=== PATIENT | female | born 1950 | race Asian ===

== ENCOUNTER 2018-06-22 17:39 | Inpatient (IN) | payer MEDICARE ==
[~2018-06-22] VITALS: Ht 160 cm; Wt 88.5 kg
[2018-06-22 18:12] VITALS: BP 169/85
[2018-06-22 18:36] LABS: BASOPHILS % (AUTO) 1.1 % (0.0-2.0); EOSINOPHILS % (AUTO) 2.4 % (0.0-3.0); HEMATOCRIT 41.2 % (37.0-47.0); HEMOGLOBIN 13.7 G/DL (12.0-16.0); LYMPHOCYTES % (AUTO) 36.6 % (20.0-45.0); MEAN CORPUSCULAR VOLUME 85 FL (80-99); MONOCYTES % (AUTO) 5.8 % (1.0-10.0); NEUTROPHILS % (AUTO) 54.2 % (45.0-75.0); PLATELET COUNT 262 K/UL (150-450); RED BLOOD COUNT 4.85 M/UL (4.20-5.40); RED CELL DISTRIBUTION WIDTH 11.1 % (11.6-14.8); WHITE BLOOD COUNT 9.6 K/UL (4.8-10.8)
[2018-06-22] MEDS ORDERED: ATORVASTATIN CA20 MG ORAL (18:36)
[2018-06-22] MEDS ORDERED: ATENOLOL50 MG ORAL (18:36)
[2018-06-22] MEDS ORDERED: LOSARTAN POTASS50 MG ORAL (18:36)
[2018-06-22] MEDS ORDERED: LEVOTHYROXINE125 MCG ORAL (18:36)
[2018-06-22] MEDS ORDERED: METFORMIN HCL1000 M1 ORAL (18:36)
[2018-06-22] MEDS ORDERED: GLIPIZIDE5 MG ORAL (18:36)
[2018-06-22 18:38] LABS: ANION GAP 7 mmol/L (5-15); BLOOD UREA NITROGEN 13 mg/dL (7-18); CALCIUM 9.4 MG/DL (8.5-10.1); CARBON DIOXIDE 26 MMOL/L (21-32); CHLORIDE 104 MMOL/L (98-107); CREATININE 0.8 MG/DL (0.55-1.30); POTASSIUM 3.4 MMOL/L (3.5-5.1); SODIUM 136 MMOL/L (136-145)
[2018-06-22 18:43] LABS: ALANINE AMINOTRANSFERASE 24 U/L (12-78); ALBUMIN 3.5 G/DL (3.4-5.0); ALKALINE PHOSPHATASE 56 U/L (46-116); ASPARTATE AMINO TRANSFERASE 17 U/L (15-37); BILIRUBIN,TOTAL 0.4 MG/DL (0.2-1.0)
--- NOTE | 2018-06-22 19:16 | Diagnostic Imaging Report ---
EXAM: XR Chest, 1 View CLINICAL HISTORY: WEAK TECHNIQUE: Frontal view of the chest. COMPARISON: No relevant prior studies available. FINDINGS: Lungs: Left midlung scarring/atelectasis. No clear consolidation. Pleural space: Unremarkable. No pneumothorax. Heart: Unremarkable. No cardiomegaly. Mediastinum: Mild aortic calcification. Bones/joints: Unremarkable. IMPRESSION: Left midlung scarring/atelectasis. No clear consolidation.
[2018-06-22] MEDS ORDERED: Zolpidem 5mg tab ORAL PRN (20:45)
[2018-06-22] MEDS ORDERED: Milk of Magnesia 30ml Ud ORAL PRN (20:45)
[2018-06-22 20:46] VITALS: BP 190/75
[2018-06-22 21:10] VITALS: BP 154/81
[2018-06-22 21:15] VITALS: BP 138/70
[2018-06-22] MEDS: NovoLOG Insulin Flexpen SUBQ SCH (22:18)
--- NOTE | 2018-06-22 22:33 | Emergency Room Report ---
History of Present Illness General Chief Complaint: Dizziness Source: Patient Present Illness HPI Mrs. Walker is a pleasant 57 yo female with hx of irregular heartbeat, DM, thyroid dz and HTN. She presents with near black episode x 4. First episode occurred while in seating position. She briefly felt as if everything became black. The episodes occurred 3 additional times. She felt as if she was continue to completely pass out. She also had numbness in jaw and face. She travels often. Recent return from cruise 2-3 weeks ago. No chest pain. No dyspnea. explained that she has had palpitations for past 2 months. She drank a few glasses of wine today. Allergies: Coded Allergies: No Known Allergies (Unverified , 06/22/18) Patient History Past Medical History: DM, HTN, other - as per history of present illness Past Surgical History: other - reviewed with patient Social History: Reports: alcohol use; Denies: smoking Social History Narrative retired accountant clerk Last Menstrual Period: menopause Nursing Documentation-[facility] Hx Diabetes: Yes Review of Systems Constitutional: Denies: fever, malaise Respiratory: Denies: cough Cardiovascular: Reports: palpitations; Denies: chest pain Gastrointestinal: Denies: abdominal pain Musculoskeletal: Denies: back pain Neurological: Denies: headache All Other Systems: negative except mentioned in HPI Physical Exam Vital Signs Date Time Temp Pulse Resp B/P (MAP) Pulse Ox O2 Delivery O2 Flow Rate FiO2 06/22/18 17:40 98.0 66 19 169/85 99 Room Air 98.1 Sp02 EP Interpretation: reviewed, normal General Appearance: no apparent distress, alert, GCS 15, non-toxic Head: normocephalic, atraumatic Eyes: bilateral eye normal inspection, bilateral eye PERRL ENT: hearing grossly normal, normal pharynx, no angioedema, normal voice Neck: full range of motion, supple/symm/no masses Respiratory: chest non-tender, lungs clear, normal breath sounds, speaking full sentences Cardiovascular #1: regular rate, rhythm, no murmur, no rub Gastrointestinal: normal bowel sounds, non tender, soft, non-distended, no guarding, no rebound Rectal: deferred Genitourinary: no CVA tenderness Musculoskeletal: back normal, gait/station normal, normal range of motion Neurologic: alert, oriented x3, responsive, motor strength/tone normal, sensory intact, speech normal Psychiatric: judgement/insight normal, memory normal, mood/affect normal, no suicidal/homicidal ideation Skin: normal color, no rash, warm/dry, well hydrated Lymphatic: no adenopathy Medical Decision Making Diagnostic Impression: Primary Impression: Near syncope ER Course near syncope recurrent with palpitations, I suspect atrial fibrillation, but will need cardiac monitoring to rule out lethal arrhythmia, also concern for ACS negative d-dimer, negative trop admitted to service of Dr. Cat Labs Test 06/22/18 18:14 White Blood Count 9.6 K/UL (4.8-10.8) Red Blood Count 4.85 M/UL (4.20-5.40) Hemoglobin 13.7 G/DL (12.0-16.0) Hematocrit 41.2 % (37.0-47.0) Mean Corpuscular Volume 85 FL (80-99) Mean Corpuscular Hemoglobin 28.3 PG (27.0-31.0) Mean Corpuscular Hemoglobin Concent 33.3 G/DL (32.0-36.0) Red Cell Distribution Width 11.1 % (11.6-14.8) Platelet Count 262 K/UL (150-450) Mean Platelet Volume 7.5 FL (6.5-10.1) Neutrophils (%) (Auto) 54.2 % (45.0-75.0) Lymphocytes (%) (Auto) 36.6 % (20.0-45.0) Monocytes (%) (Auto) 5.8 % (1.0-10.0) Eosinophils (%) (Auto) 2.4 % (0.0-3.0) Basophils (%) (Auto) 1.1 % (0.0-2.0) D-Dimer 0.30 mg/L FEU (0.00-0.49) Sodium Level 136 MMOL/L (136-145) Potassium Level 3.4 MMOL/L (3.5-5.1) Chloride Level 104 MMOL/L (98-107) Carbon Dioxide Level 26 MMOL/L (21-32) Anion Gap 7 mmol/L (5-15) Blood Urea Nitrogen 13 mg/dL (7-18) Creatinine 0.8 MG/DL (0.55-1.30) Estimat Glomerular Filtration Rate > 60 mL/min (>60) Glucose Level 134 MG/DL (74-106) Calcium Level 9.4 MG/DL (8.5-10.1) Total Bilirubin 0.4 MG/DL (0.2-1.0) Aspartate Amino Transf (AST/SGOT) 17 U/L (15-37) Alanine Aminotransferase (ALT/SGPT) 24 U/L (12-78) Alkaline Phosphatase 56 U/L (46-116) Troponin I 0.000 ng/mL (0.000-0.056) Total Protein 7.1 G/DL (6.4-8.2) Albumin 3.5 G/DL (3.4-5.0) Globulin 3.6 g/dL Albumin/Globulin Ratio 1.0 (1.0-2.7) EKG Diagnostic Results Rate: normal Rhythm: NSR ST Segments: no acute changes Other Impression nl axis nl intervals Chest X-Ray Diagnostic Results Chest X-Ray Diagnostic Results : Chest X-Ray Ordered: Yes # of Views/Limited/Complete: 1 View Indication: Other - near syncope EP Interpretation: Yes PA Xray: Interpretation reviewed Impression: No acute disease Electronically Signed by: This image has been electronically signed by Dr. Rosie Mondragon Last Vital Signs Date Time Temp Pulse Resp B/P (MAP) Pulse Ox O2 Delivery O2 Flow Rate FiO2 06/22/18 21:26 98.1 17 154/81 99 Room Air 98.1 06/22/18 21:08 63 Disposition: ADMITTED INPATIENT Condition: Stable Referrals: NON PHYSICIAN (PCP) ROSIE MONDRAGON Jun 22, 2018 22:33
[2018-06-23] VITALS: BP 118/62
[2018-06-23 04:00] VITALS: BP 116/66
[2018-06-23] MEDS: metFORMIN 500mg tab ORAL SCH ×2 (06:09→17:42)
[2018-06-23] MEDS: GlipiZIDE 5mg tab ORAL SCH ×2 (06:10→17:41)
[2018-06-23] MEDS: NovoLOG Insulin Flexpen SUBQ SCH ×4 (06:11→20:57)
[2018-06-23 08:00] VITALS: BP 134/70
[2018-06-23 08:23] LABS: CHOLESTEROL 129 MG/DL (< 200); HDL CHOLESTEROL 58 MG/DL (40-60); TRIGLYCERIDES 138 MG/DL (30-150)
[2018-06-23] MEDS ORDERED: Aspirin Baby 81mg ORAL SCH (09:00)
[2018-06-23] MEDS: Losartan 50mg tab ORAL SCH (09:11)
--- NOTE | 2018-06-23 11:02 | History & Physical ---
History and Physical History & Physicial HP dictated # [id number] Emanuel Cat MD Jun 23, 2018 11:02
[2018-06-23 12:00] VITALS: BP 151/78
[2018-06-23] MEDS ORDERED: Lexiscan 0.4mg/5ml syringe IV PRN (14:00)
[2018-06-23] MEDS ORDERED: Aspirin EC 81mg tab ORAL SCH (14:00)
--- NOTE | 2018-06-23 14:06 | Cardiology Progress Note ---
Subjective Subjective [id number] Objective Last 24 Hour Vital Signs Date Time Temp Pulse Resp B/P (MAP) Pulse Ox O2 Delivery O2 Flow Rate FiO2 06/23/18 09:11 134/70 06/23/18 08:00 73 06/23/18 08:00 98.3 72 16 134/70 (91) 98 98.3 06/23/18 04:00 97.7 62 18 116/66 (83) 97 97.7 06/23/18 04:00 61 06/23/18 00:00 71 06/23/18 00:00 98.0 66 18 118/62 (80) 98 98.0 06/22/18 23:57 Room Air 06/22/18 21:35 69 06/22/18 21:26 98.1 17 154/81 99 Room Air 98.1 06/22/18 21:15 98.5 67 20 138/70 (92) 96 98.5 06/22/18 21:10 154/81 06/22/18 21:08 63 190/75 06/22/18 20:46 63 17 190/75 99 Room Air 06/22/18 18:12 98.1 66 19 169/85 99 Room Air 98.1 06/22/18 17:40 98.0 66 19 169/85 99 Room Air 98.1 Intake and Output 06/22/18 06/23/18 19:00 07:00 Intake Total 1000 ml Output Total 0 ml 0 ml Balance 0 ml 1000 ml IV Total 1000 ml Output Urine Total 0 ml 0 ml Laboratory Tests Test 06/22/18 18:14 06/23/18 05:45 06/23/18 11:25 White Blood Count 9.6 K/UL (4.8-10.8) Red Blood Count 4.85 M/UL (4.20-5.40) Hemoglobin 13.7 G/DL (12.0-16.0) Hematocrit 41.2 % (37.0-47.0) Mean Corpuscular Volume 85 FL (80-99) Mean Corpuscular Hemoglobin 28.3 PG (27.0-31.0) Mean Corpuscular Hemoglobin Concent 33.3 G/DL (32.0-36.0) Red Cell Distribution Width 11.1 % (11.6-14.8) L Platelet Count 262 K/UL (150-450) Mean Platelet Volume 7.5 FL (6.5-10.1) Neutrophils (%) (Auto) 54.2 % (45.0-75.0) Lymphocytes (%) (Auto) 36.6 % (20.0-45.0) Monocytes (%) (Auto) 5.8 % (1.0-10.0) Eosinophils (%) (Auto) 2.4 % (0.0-3.0) Basophils (%) (Auto) 1.1 % (0.0-2.0) D-Dimer 0.30 mg/L FEU (0.00-0.49) Sodium Level 136 MMOL/L (136-145) Potassium Level 3.4 MMOL/L (3.5-5.1) L Chloride Level 104 MMOL/L (98-107) Carbon Dioxide Level 26 MMOL/L (21-32) Anion Gap 7 mmol/L (5-15) Blood Urea Nitrogen 13 mg/dL (7-18) Creatinine 0.8 MG/DL (0.55-1.30) Estimat Glomerular Filtration Rate > 60 mL/min (>60) Glucose Level 134 MG/DL (74-106) H Calcium Level 9.4 MG/DL (8.5-10.1) Total Bilirubin 0.4 MG/DL (0.2-1.0) Aspartate Amino Transf (AST/SGOT) 17 U/L (15-37) Alanine Aminotransferase (ALT/SGPT) 24 U/L (12-78) Alkaline Phosphatase 56 U/L (46-116) Troponin I 0.000 ng/mL (0.000-0.056) 0.000 ng/mL (0.000-0.056) Total Protein 7.1 G/DL (6.4-8.2) Albumin 3.5 G/DL (3.4-5.0) Globulin 3.6 g/dL Albumin/Globulin Ratio 1.0 (1.0-2.7) Hemoglobin A1c 8.3 % (4.3-6.0) H Magnesium Level 1.7 MG/DL (1.8-2.4) L Triglycerides Level 138 MG/DL (30-150) Cholesterol Level 129 MG/DL (< 200) LDL Cholesterol 55 mg/dL (<100) HDL Cholesterol 58 MG/DL (40-60) Cholesterol/HDL Ratio 2.2 (3.3-4.4) L Thyroid Stimulating Hormone (TSH) 0.227 uiU/mL (0.358-3.740) Salud Wright MD Jun 23, 2018 14:06
[2018-06-23 16:00] VITALS: BP 141/76
--- NOTE | 2018-06-23 18:39 | Cardiology Report ---
APPROVED REPORT EKG Measurement Heart [id number] CT [id number] Normal sinus rhythm Normal ECG
[2018-06-23 20:00] VITALS: BP 144/74
[2018-06-24] VITALS (7 sets, daily range): BP systolic 135–170; BP diastolic 67–91
[2018-06-24] MEDS: metFORMIN 500mg tab ORAL SCH ×2 (05:54→16:46)
[2018-06-24] MEDS: GlipiZIDE 5mg tab ORAL SCH ×2 (05:55→16:46)
[2018-06-24] MEDS: NovoLOG Insulin Flexpen SUBQ SCH ×4 (05:56→21:00)
[2018-06-24] MEDS: Losartan 50mg tab ORAL SCH (08:13)
[2018-06-24 08:14] LABS: ANION GAP 8 mmol/L (5-15); BLOOD UREA NITROGEN 6 mg/dL (7-18); CALCIUM 8.3 MG/DL (8.5-10.1); CARBON DIOXIDE 26 MMOL/L (21-32); CHLORIDE 108 MMOL/L (98-107); CREATININE 0.7 MG/DL (0.55-1.30); SODIUM 142 MMOL/L (136-145)
[2018-06-24] MEDS: Aspirin EC 81mg tab ORAL SCH (08:17)
--- NOTE | 2018-06-24 12:32 | General Progress Note ---
Assessment/Plan Problem List: (1) Near syncope ICD Codes: R55 - Syncope and collapse SNOMED: 244238569 (2) DM (diabetes mellitus) ICD Codes: E11.9 - Type 2 diabetes mellitus without complications SNOMED: 45977707 Qualifiers: Subjective Allergies: Coded Allergies: No Known Allergies (Unverified , 06/22/18) Subjective was dizzy today Objective Last 24 Hour Vital Signs Date Time Temp Pulse Resp B/P (MAP) Pulse Ox O2 Delivery O2 Flow Rate FiO2 06/24/18 09:29 150/88 (108) 06/24/18 09:00 Room Air 06/24/18 08:13 170/91 06/24/18 08:00 67 06/24/18 07:59 97.6 66 18 170/91 (117) 95 97.6 06/24/18 04:00 97.5 72 18 140/67 (91) 95 97.5 06/24/18 04:00 61 06/24/18 00:00 64 06/24/18 00:00 97.9 65 18 145/78 (100) 94 97.9 06/23/18 21:00 Room Air 06/23/18 20:00 63 06/23/18 20:00 97.9 64 18 144/74 (97) 96 97.9 06/23/18 16:00 67 06/23/18 16:00 98.0 66 16 141/76 (97) 93 98.0 Intake and Output 06/23/18 06/24/18 19:00 07:00 Intake Total 480 ml 240 ml Balance 480 ml 240 ml Intake Oral 480 ml 240 ml # Voids 3 # Bowel Movements 1 Laboratory Tests 06/24/18 07:05: Sodium Level 142, Potassium Level 4.0, Chloride Level 108H, Carbon Dioxide Level 26, Anion Gap 8, Blood Urea Nitrogen 6L, Creatinine 0.7, Estimat Glomerular Filtration Rate > 60, Glucose Level 137H, Calcium Level 8.3L, Magnesium Level 1.9 Height (Feet): 5 Height (Inches): 3.00 Weight (Pounds): 195 Cardiovascular: normal rate Respiratory/Chest: lungs clear Emanuel Cat MD Jun 24, 2018 12:32
[2018-06-24] MEDS ORDERED: Metoprolol 5mg/5ml Inj IVP SCH (13:20)
--- NOTE | 2018-06-24 20:12 | Cardiology Progress Note ---
Assessment/Plan Assessment/Plan near syncope (while at a computer) paf fh of premature cad hs of of palpitation and irregular heart rate likely paf dm htn hld over weight hyperthyroidism (?iatrogenic) would decrease Synthroid dose stress test postponed as developed afib rvr resume bb po echo prelim noted will need stress test d/w pt importance of following her a1c has been active ot a degree without any cp all trop neg needs a ziopatch for afib burden evlaution will start on asa likey need anticoagualtion if has any sig afib burden statin bb ecoritn Subjective Cardiovascular: Denies: chest pain, lightheadedness Respiratory: Denies: shortness of breath Gastrointestinal/Abdominal: Denies: abdominal pain Genitourinary: Denies: burning Subjective hs of palpitation intermttientlyfor soem time on atneolol did not feel palpitation prior to the episode fo near syncope travel pta dm for 10 year h Objective Last 24 Hour Vital Signs Date Time Temp Pulse Resp B/P (MAP) Pulse Ox O2 Delivery O2 Flow Rate FiO2 06/24/18 16:00 97.7 76 20 139/82 (101) 97 97.7 06/24/18 16:00 76 06/24/18 13:30 118 135/77 06/24/18 12:00 97.3 61 20 135/77 (96) 97 97.3 06/24/18 12:00 71 06/24/18 09:29 150/88 (108) 06/24/18 09:00 Room Air 06/24/18 08:13 170/91 06/24/18 08:00 67 06/24/18 07:59 97.6 66 18 170/91 (117) 95 97.6 06/24/18 04:00 97.5 72 18 140/67 (91) 95 97.5 06/24/18 04:00 61 06/24/18 00:00 64 06/24/18 00:00 97.9 65 18 145/78 (100) 94 97.9 06/23/18 21:00 Room Air General Appearance: no apparent distress, alert Neck: supple Cardiovascular: normal rate, regular rhythm Respiratory/Chest: lungs clear Abdomen: normal bowel sounds, non tender, soft Extremities: no swelling Intake and Output 06/23/18 06/24/18 19:00 07:00 Intake Total 480 ml 240 ml Balance 480 ml 240 ml Intake Oral 480 ml 240 ml # Voids 3 # Bowel Movements 1 Laboratory Tests Test 06/24/18 07:05 Sodium Level 142 MMOL/L (136-145) Potassium Level 4.0 MMOL/L (3.5-5.1) Chloride Level 108 MMOL/L (98-107) H Carbon Dioxide Level 26 MMOL/L (21-32) Anion Gap 8 mmol/L (5-15) Blood Urea Nitrogen 6 mg/dL (7-18) L Creatinine 0.7 MG/DL (0.55-1.30) Estimat Glomerular Filtration Rate > 60 mL/min (>60) Glucose Level 137 MG/DL (74-106) H Calcium Level 8.3 MG/DL (8.5-10.1) L Magnesium Level 1.9 MG/DL (1.8-2.4) Logan Fong MD Jun 24, 2018 20:12
[2018-06-25] VITALS: BP 144/75
[2018-06-25 04:00] VITALS: BP 130/73
[2018-06-25] MEDS: metFORMIN 500mg tab ORAL SCH ×2 (06:12→16:31)
[2018-06-25] MEDS: GlipiZIDE 5mg tab ORAL SCH ×2 (06:12→16:31)
[2018-06-25] MEDS: NovoLOG Insulin Flexpen SUBQ SCH ×3 (06:13→16:34)
[2018-06-25 07:59] VITALS: BP 146/74
[2018-06-25] MEDS: Aspirin EC 81mg tab ORAL SCH (08:08)
[2018-06-25] MEDS: Losartan 50mg tab ORAL SCH (08:08)
--- NOTE | 2018-06-25 10:50 | History and Physical Report ---
DATE OF ADMISSION: 06/22/2018 CHIEF COMPLAINT: Feeling of the blacking out. HISTORY OF PRESENT ILLNESS: This is a 67-year-old female with history of irregular heartbeat, diabetes mellitus, hypertension, and hypothyroidism. The patient was working on her computer around 3 p.m. yesterday when she felt that she was about to black out. She felt that her jaw was getting numb. She laid down. Eventually, she got better, however, this episode happened a few times, one time while she was sitting outside in the emergency room. The patient has had irregular heart beat as mentioned and recently, she has been feeling sometimes her heart is faster. PAST MEDICAL HISTORY: As above. MEDICATIONS: Reviewed in the EMR. ALLERGIES: No known drug allergies. SOCIAL HISTORY: No history of alcohol abuse. The patient did smoke in the past, but stopped in . REVIEW OF SYSTEMS: Noncontributory. PHYSICAL EXAMINATION: GENERAL: The patient is a 67-year-old female, in no acute distress. VITAL SIGNS: Blood pressure is 134/70, pulse 72, temperature 98.3 degrees, respiratory rate is 16. HEENT: [place] conjunctivae. Anicteric sclerae. NECK: Supple. LUNGS: Clear to auscultation. HEART: S1 and S2 without murmurs or rubs. ABDOMEN: Soft and nontender. EXTREMITIES: No cyanosis or edema. LABORATORY FINDINGS: The CBC shows a WBC of 9600, hematocrit is 41.2, hemoglobin is 13.7, and platelets 252,000. The chemistry panel shows sodium 136, potassium 3.4, chloride 104, BUN is 13, creatinine 0.8, and calcium is 9.4. LDL is 55. TSH is 0.0227. Magnesium 1.7. ASSESSMENT: This is a 59-year-old female, who is admitted with what appears to be presyncopal episodes. She has had history of irregular heartbeat and she could have severe bradycardia causing that malignant arrhythmia such as ventricular tachycardia, needs to be ruled out. The patient is also somewhat hypokalemic and hypomagnesemic. The TSH is on the low side. PLAN: The patient will be on telemetry unit. Troponin will be ordered to make sure the patient does not have PR. An echocardiogram will be obtained to assess LV function and also, we will look for wall motion abnormalities. The patient was taking atenolol and we will hold off on that at this time. Her levothyroxine needs to be reduced because of the depressed level of TSH. Magnesium and potassium will be repleted. Emanuel Cat M.D. DR: Timo JOB#: [id number] CC: TRINH
--- NOTE | 2018-06-25 11:02 | Consultation ---
DATE OF CONSULTATION: 06/23/2018 CARDIOLOGY CONSULTATION CONSULTING PHYSICIAN: Salud Wright M.D. PATIENT IDENTIFYING DATA: This is a 67-year-old female with syncope. HISTORY OF PRESENT ILLNESS: Taken from the patient, who is a very good historian. She had four presyncopal episodes. She yesterday in the afternoon was sitting at the computer. She was sitting for about 30 minutes and in a cool environment and then suddenly she felt like something coming down on her face from the forehead to the face and everything is blacking out. She did not completely pass out, it lasted for seconds and then she told her and then she got up and she walked to . She was working in a structure adjacent to her house, so she went to her house and laid down. This structure has air condition and when she was lying down about 5 minutes, she had another 2 episodes, with the second episode, she felt like her lower jaw is tingling, does not radiate anywhere and nothing in her chest or her arms. So, then they decided to come to emergency department. When he came to the emergency department, she had another episode while she was waiting in the waiting area and then they brought her in, but since that time she was fine. Right now, she feels totally fine. Another cardiac symptom, she has is intermittent palpitations, which she had for a while, just couple of years and they last for about 10 seconds. She just feels fast fluttering in her chest without any significant discomfort and she does not do anything for that. It is not exertional and she has it maybe once in 2-3 weeks and she had one episode yesterday when she is lying down, but it was separate from her presyncopal episodes. She does not exercise much. She just walks as needed around the house and to the car, but otherwise she does not exercise at all. She had a stress nuclear test about five years ago, which was unremarkable. Her coronary risk factors include hypertension, diabetes, hyperlipidemia and also a strong family history, her brother suddenly at age 65, and he has quadruple bypass at age 55 and her sister had a bypass, and her sister is still alive. PAST MEDICAL HISTORY: In addition to above significant for hypothyroidism. MEDICATIONS: Atenolol, atorvastatin, metformin, glipizide, and levothyroxine. HABITS: No history of drinking, smoking, or drug abuse. SOCIAL HISTORY: She still works. She is independent. REVIEW OF SYSTEMS: There was no shaking or sweating with her episodes. She does not check her blood sugar regular at home. Yesterday, she was working in the morning in the air-conditioned environment and then she was at lunch with her friends about 1 p.m. with 2 glasses of wine. She does not have any diarrhea, dysuria, cough or fever. She usually does not check her blood sugar or blood pressure at home. PHYSICAL EXAMINATION: GENERAL: She appears to be totally stable. VITAL SIGNS: Blood pressure 120/60, heart rate is 70, oxygen saturation is normal, and temperature is normal. HEENT: PERRLA. EOMI. Carotid bruit on the right side. Carotid massage was negative for dizziness. No thyromegaly. LUNGS: Clear to auscultation bilaterally. HEART: Regular. Slightly distant S1, positive S4. BREASTS: No masses. ABDOMEN: Obese, soft, nontender. No masses palpable. EXTREMITIES: Lower extremities, no edema. Distal pulses palpable. NEUROLOGICAL: She is intact. LABORATORY AND DIAGNOSTIC DATA: Her labs are all reviewed. Her potassium was 3.4 yesterday and she received potassium yesterday. Her laboratories otherwise unremarkable. Her mag today was 1.7. Her LDL is 55. A chest x-ray, unremarkable and EKG is unremarkable. IMPRESSION AND RECOMMENDATION: Syncope, uncertain etiology, potentially could be vasovagal or carotid hypersensitivity. However, I am more concerned about a very strong family history for coronary artery disease and for carotid bruit. I am going to order stress nuclear scan, but I ordered a carotid duplex. I discussed with Dr. Fong. He is going to follow on that tomorrow and I discussed in detail with the patient and with the family. Thank you very much. Salud Wright M.D. DR: ELE JOB#: [id number] CC:
[2018-06-25 11:56] VITALS: BP 158/87
--- NOTE | 2018-06-25 13:12 | Cardiology Progress Note ---
Assessment/Plan Assessment/Plan near syncope (while at a computer) paf fh of premature cad hs of of palpitation and irregular heart rate likely paf dm htn hld over weight hyperthyroidism (?iatrogenic) on lower dose of Synthroid dose stress test performed awit repeat images on bb po d/w pt importance of following her a1c has been active to a degree without any cp all trop neg needs a ziopatch for afib burden evaluation will start on asa 325 mg daily she will be goign on trop to [place] to soon likey need anticoagualtion if has any sig afib burden statin bb ecoritn if stress test normal ok ot dc home Subjective Cardiovascular: Denies: chest pain, lightheadedness, palpitations Respiratory: Denies: shortness of breath Gastrointestinal/Abdominal: Denies: abdominal pain Genitourinary: Denies: burning Subjective hs of palpitation intermittently for some time on atenolol did not feel palpitation prior to the episode fo near syncope [employer] dm for 10 year Objective Last 24 Hour Vital Signs Date Time Temp Pulse Resp B/P (MAP) Pulse Ox O2 Delivery O2 Flow Rate FiO2 06/25/18 12:00 63 06/25/18 11:56 97.8 62 16 158/87 (110) 96 97.8 06/25/18 09:00 Room Air 06/25/18 08:08 146/74 06/25/18 08:00 60 06/25/18 07:59 97.6 63 20 146/74 (98) 98 97.6 06/25/18 04:00 60 06/25/18 04:00 97.9 64 18 130/73 (92) 95 97.9 06/25/18 00:00 97.3 69 19 144/75 (98) 97 97.3 06/25/18 00:00 69 06/24/18 21:00 Room Air 06/24/18 20:00 97.2 76 19 148/76 (100) 96 97.2 06/24/18 20:00 75 06/24/18 16:00 97.7 76 20 139/82 (101) 97 97.7 06/24/18 16:00 76 06/24/18 13:30 118 135/77 General Appearance: no apparent distress, alert Neck: supple Cardiovascular: normal rate Respiratory/Chest: lungs clear Abdomen: normal bowel sounds, non tender, soft Extremities: no swelling Intake and Output 06/24/18 06/25/18 19:00 07:00 Intake Total 340 ml Balance 340 ml Intake Oral 240 ml IV Total 100 ml # Voids 2 2 Logan Fong MD Jun 25, 2018 13:12
[2018-06-25 15:30] VITALS: BP 160/84
--- NOTE | 2018-06-25 16:46 | General Progress Note ---
Assessment/Plan Problem List: (1) Near syncope ICD Codes: R55 - Syncope and collapse SNOMED: 231371354 (2) DM (diabetes mellitus) ICD Codes: E11.9 - Type 2 diabetes mellitus without complications SNOMED: 39271628 Qualifiers: Assessment/Plan await stress test will discuss with dr pastor Subjective Allergies: Coded Allergies: No Known Allergies (Unverified , 06/22/18) Subjective feels ok Objective Last 24 Hour Vital Signs Date Time Temp Pulse Resp B/P (MAP) Pulse Ox O2 Delivery O2 Flow Rate FiO2 06/25/18 16:00 70 06/25/18 15:33 73 160/84 06/25/18 15:30 98.0 73 20 160/84 (109) 97 98.0 06/25/18 12:00 63 06/25/18 11:56 97.8 62 16 158/87 (110) 96 97.8 06/25/18 09:00 Room Air 06/25/18 08:08 146/74 06/25/18 08:00 60 06/25/18 07:59 97.6 63 20 146/74 (98) 98 97.6 06/25/18 04:00 60 06/25/18 04:00 97.9 64 18 130/73 (92) 95 97.9 06/25/18 00:00 97.3 69 19 144/75 (98) 97 97.3 06/25/18 00:00 69 06/24/18 21:00 Room Air 06/24/18 20:00 97.2 76 19 148/76 (100) 96 97.2 06/24/18 20:00 75 Intake and Output 06/24/18 06/25/18 19:00 07:00 Intake Total 340 ml Balance 340 ml Intake Oral 240 ml IV Total 100 ml # Voids 2 2 Height (Feet): 5 Height (Inches): 3.00 Weight (Pounds): 195 Cardiovascular: normal rate Respiratory/Chest: lungs clear Emanuel Cat MD Jun 25, 2018 16:46
--- NOTE | 2018-06-25 16:58 | Diagnostic Imaging Report ---
Indications: Chest pain, syncope, hypertension Technique: Single day single isotope protocol utilized. Initially, resting images obtained using IV administration 10 millicuries 99M technetium Myoview. Subsequently, patient underwent stress testing. See cardiology report for details. During adenosine infusion, IV administration 30.9 mCi 99 M technetium Myoview. SPECT and planar images obtained. SPECT images gated to 8 phases of the cardiac cycle were also obtained, and reformatted into cine images for evaluation of ejection fraction. Comparison: none Findings: Per cardiology report, patient experienced headache during infusion. Per cardiology report, resting EKG demonstrates normal sinus rhythm, no ST changes reported during infusion. Very questionable subtle slight area of decreased perfusion in the anteroseptal wall near the apex probably does not change significantly on the resting images and is likely on the basis of attenuation artifact. Calculated post stress ejection fraction 68% Impression: Nonischemic clinical response to pharmacologic stress, per cardiology report Nonischemic electrocardiographic response to pharmacologic stress, per cardiology report No imaging findings to suggest ischemia, at level of stress achieved. Calculated post stress ejection fraction 68%
[2018-06-25] MEDS ORDERED: ASPIRIN325 MG ORAL (17:38)
[2018-06-25 17:53] VITALS: BP 147/83
[2018-06-26] MEDS ORDERED: Aspirin EC 325mg tab ORAL SCH (09:00)
--- NOTE | 2018-06-26 09:20 | Discharge Summary ---
Discharge Summary Discharge Summary _ DATE OF ADMISSION: 06/22/2018 DATE OF DISCHARGE: 06/25/2018 REASON FOR ADMISSION: 67 years old female with past medical history significant for hypertension, diabetes mellitus, thyroid disorder, irregular heartbeat, presented after near blackout episode. Patient reported total of four near blackout episodes. First episode occurred while she was sitting at the computer. She briefly fell as everything became black. She experienced three more additional episodes, when she felt , that she was about to pass out. She also reported numbness in face. Patient reported strong family history of coronary artery disease. Patient travels a lot, recently returned from cruise about 3 weeks ago. No chest pain or dyspnea. Patient reported palpitations for past two months. Upon evaluation vital signs revealed elevated blood pressure 169/85. Heart rate was stable. Laboratory workup revealed no leukocytosis ,stable hemoglobin and hematocrit, stable renal parameters and electrolytes. Troponin was negative. EKG revealed normal sinus rhythm. No acute ischemic changes. Chest x-ray revealed no acute cardiopulmonary pathology. Potassium and magnesium noted to be s on the low side. TSH was low . Patient admitted with diagnosis of near-syncope. CONSULTANTS: hand leather trimmer Dr. Fong [facility]: Patient admitted to monitored floor. Serial troponin 2 were negative. Telemetry revealed no acute ischemic changes. Patient therefore was ruled out for acute myocardial infarction. Certified Physical Therapist Assistant closely followed. Echocardiogram revealed preserved ejection fraction of 60-65%, mild left ventricular hypertrophy. No evidence of wall motion abnormalities. Carotid duplex was essentially negative. Myocardial perfusion stress test was nonischemic with calculated ejection fraction of 68%. SH noted to be low. Levothyroxine dose was decreased. Patient was on aspirin and statin. Lipid panel was stable. Heart rate was controlled with beta cordelia. Blood pressure was clsoely monitored and managed with current regimen. Patient had no cardiac complaints. Patient likely will need anticoagulation for atrial fibrillation, but first have to be evaluated with Zio-patch for burden of atrial fibrillation Meantime hand leather trimmer increased Ecotrin to 325 mg daily. Certified Physical Therapist Assistant cleared for discharge. Blood sugar was managed with oral anti-glycemic and sliding scale of insulin as needed. Hemoglobin A1c 8.3, not at goal. Patient needs tighter blood sugar control as outpatient. Potassium and magnesium were replaced. Patient clinically improved and was stable for discharge home. FINAL DIAGNOSES: Near-syncope Paroxysmal atrial fibrillation Hypertension Hyperlipidemia Diabetes mellitus Hypothyroidism with low TSH Overweight Family history of premature coronary artery disease DISCHARGE MEDICATIONS: See Medication Reconciliation list. DISCHARGE INSTRUCTIONS: Patient was discharged home Follow up with primary care provider in one week. Instructed on return to ED precautions I have been assigned to dictate discharge summary for this account. I was not involved in the patient's management. Zari Hayes NP Jun 26, 2018 09:20
--- NOTE | 2018-06-26 13:22 | Cardiology Report ---
APPROVED REPORT EXAM: Two-dimensional and M-mode echocardiogram with Doppler and color Doppler. INDICATION VENTRICULAR FUNCTION M-Mode DIMENSIONS IVSd1.2 (0.7-1.1cm)Left Atrium (MM)3.6 (1.6-4.0cm) LVDd5.1 (3.5-5.6cm)Aortic Root2.5 (2.0-3.7cm) PWd1.1 (0.7-1.1cm)Aortic Cusp Exc.1.7 (1.5-2.0cm) LVDs3.3 (2.5-4.0cm) PWs1.6 cm Normal left ventricular chamber size, systolic function and wall motion. Left ventricular ejection fraction estimated to be 60-65 %. Mild left ventricular hypertrophy. No evidence of pericardial or pleural effusion. Right cardiac chamber sizes are within normal limits. Mild left atrial enlargement by 2D. Focal aortic valve sclerosis with adequate cusp excursion. Mildly thickened mitral valve leaflets with normal excursion. Mild mitral annulus and aortic root calcification. Pulmonic valve not well visualized. Normal tricuspid valve structure. IVC dilated at 2.6 cm non-collapsible with respiration indicate increased RA pressure. A color flow and spectral Doppler study was performed and revealed: No aortic regurgitation. Mild mitral regurgitation. Mitral inflow velocities indicates possible pseudo normalization pattern implying significant left ventricular diastolic dysfunction. No tricuspid regurgitation.
--- NOTE | 2018-06-26 23:38 | Diagnostic Imaging Report ---
APPROVED REPORT CPT Code: 84243 Vascular Symptoms Dizziness and Vertigo Doppler Spectral Velocity Analysis RightLeft BILATERAL: CCA/BULB - Imaging reveals irregular, minimal plaque in both carotid bulbs. arteries. The Doppler spectral flow analysis is within normal limits throughout the internal and external carotid arteries. VERTEBRALS - Imaging reveals both vertebral arteries to be patent, without evidence of stenosis or steal.
== END 2018-06-25 18:15 | disposition home or self-care (01) | DRG 310 ==
LOC: EMR 18:05 → 2E 18:33 → EDBEDREQ 18:58
DX: I48.0 Paroxysmal atrial fibrillation (principal); R55 Syncope and collapse; E11.9 Type 2 diabetes mellitus without complications; I10 Essential (primary) hypertension; E78.5 Hyperlipidemia, unspecified; E66.3 Overweight; E87.6 Hypokalemia; E83.42 Hypomagnesemia; E03.9 Hypothyroidism, unspecified; Z82.49 Family history of ischemic heart disease and other diseases of the circulatory system; Z68.34 Body mass index [BMI] 34.0-34.9, adult
CPT/HCPCS: 36415; 71045; 78452; 80048; 80053; 80061; 82962; 83036; 83735; 84443; 84484; 85025; 85379; 93005; 93017; 93306; 93880; J1815; J2785; J8499